=== PATIENT | female | born 1990 | race Two or more races ===

== ENCOUNTER 2023-03-21 09:58 | Outpatient (REF) | payer OTHER, SELFPAY ==
--- NOTE | ~2023-03-21 | CT_ITS ---
EXAMINATION: CT ANGIOGRAM BRAIN, HEAD CLINICAL INFORMATION: Cerebral aneurysm COMPARISON: None available. TECHNIQUE: Test bolus sequences followed by intravenous administration 75 mL of Omnipaque 350 intravenous contrast. Helical imaging was performed in the axial plane from the skull base to the vertex. Delayed postcontrast imaging of the head was also performed. The data was processed at the sand technologist workstation for generation of MIP sequences. Three-dimensional volume rendered reformatted images were also generated at an offline 3-D workstation. The degree of stenosis determined by NASCET criteria. This CT examination was performed using dose optimization techniques as appropriate, variously including the following: *Automated exposure control *Adjustment of mA and/or kV according to patient size (this includes techniques or standardized protocols for targeted exams where dose is matched to indication/reason for exam; i.e. extremities or head) *Use of iterative reconstruction technique DLP: 2015 mGy-cm FINDINGS: Brain: No acute intracranial hemorrhage or infarct. The hannon-white matter differentiation is preserved. No midline shift or hydrocephalus. No acute extra-axial fluid collections. The osseous structures are unremarkable. No orbital pathology. The paranasal sinuses and mastoid air cells are clear. Limited evaluation secondary to suboptimal contrast bolus timing. CTA HEAD: Anterior circulation: The petrous, cavernous, and supraclinoid segments of the internal carotid arteries are patent. The major branches of the anterior and middle cerebral arteries as well as the anterior communicating artery complex are patent. No large vessel occlusion, saccular aneurysm, or dissection. Posterior circulation: The intracranial vertebral arteries are normal in caliber and patent. The basilar artery is normal in course and caliber. The superior cerebral and posterior cerebellar arteries arise normally from the basilar summit. No aneurysm. On delayed imaging, the venous structures demonstrate normal contrast opacification. No filling defect. No abnormal intraparenchymal enhancement. CT/CT angio head IMPRESSION: Within the limitations of this study, -No acute intracranial hemorrhage or infarct. -CTA head demonstrates no large vessel occlusion, saccular aneurysm, or dissection.
[2023-03-21] MEDS: iohexoL 350 MG/ML 100 ML INFUS..BTL 75 ML IV (11:06)
== END 2023-03-21 09:59 | disposition home or self-care (01) ==
LOC: HO.CT 09:58
PROVIDERS: Visit Provider Psychiatry & Neurology Neurology
DX: I87.1 Compression of vein (principal)
CPT/HCPCS: 70496; Q9967